=== PATIENT | male | born 1985 ===

== ENCOUNTER 2021-07-07 09:15 | Emergency (ER) | payer BC ==
--- NOTE | 2021-07-07 09:54 | EDM.PDOC ---
ED HPI GENERAL MEDICAL PROBLEM - General Chief Complaint: Chest Pain Stated Complaint: CHEST PAIN Time Seen by Provider: 07/07/21 09:32 Source of Information: Reports: Patient History Limitations: Reports: No Limitations - History of Present Illness INITIAL COMMENTS - FREE TEXT/NARRATIVE: Is a 35-year-old male who presents today for chest pain. Patient been having his pain for the past few months. He states he seen 3 providers and they thought it may be related to anxiety. But states that he has a sharp pain on the left side he also states that he has his feelings where his heart is beating stronger than what it should be. Said he got yesterday with his walker and fell. Says when he sits down it briefly goes away at times. He denies shortness of breath currently when he has his strong heartbeat he feels some shortness of breath denies any cough fever chills or other complaints. chest Pain Score (Numeric/FACES): 5 - Related Data Allergies Allergy/AdvReac Type Severity Reaction Status Date / Time No Known Allergies Allergy Verified 07/07/21 09:36 Home Meds: Home Meds . [No Known Home Meds] 07/07/21 [History] Past Medical History Respiratory History: Reports: Asthma Gastrointestinal History: Reports: GERD - Infectious Disease History Infectious Disease History: Reports: Chicken Pox, Novel Coronavirus ED ROS GENERAL - Review of Systems Review Of Systems: See Below Constitutional: Reports: No Symptoms HEENT: Reports: No Symptoms Respiratory: Reports: No Symptoms Cardiovascular: Reports: Chest Pain, Palpitations Endocrine: Reports: No Symptoms GI/Abdominal: Reports: No Symptoms : Reports: No Symptoms Musculoskeletal: Reports: No Symptoms Skin: Reports: No Symptoms Neurological: Reports: No Symptoms Psychiatric: Reports: No Symptoms Hematologic/Lymphatic: Reports: No Symptoms Immunologic: Reports: No Symptoms ED EXAM, GENERAL - Physical Exam Exam: See Below Exam Limited By: No Limitations General Appearance: Alert, WD/WN, No Apparent Distress Eye Exam: Bilateral Eye: EOMI, PERRL Nose: Normal Inspection Throat/Mouth: Normal Inspection Head: Atraumatic, Normocephalic Neck: Normal Inspection Respiratory/Chest: No Respiratory Distress, Lungs Clear Cardiovascular: Normal Peripheral Pulses, Regular Rate, Rhythm GI/Abdominal: Normal Bowel Sounds, Soft, Non-Tender Extremities: Normal Inspection, Normal Range of Motion Neurological: Alert, Oriented, Normal Cognition, Normal Gait #1 Interpretation EKG Date: 07/07/21 Time: 09:20 Rhythm: NSR Rate (Beats/Min): 74 ST-T: Other (Diffuse ST elevation no signs of STEMI) Course - Vital Signs Last Recorded V/S: Last Vital Signs Temp 97.2 F 07/07/21 09:36 Pulse 63 07/07/21 09:51 Resp 18 07/07/21 09:51 BP 129/66 07/07/21 09:51 Pulse Ox 96 07/07/21 09:51 - Orders/Labs/Meds Labs: Laboratory Tests 07/07/21 07/07/21 Range/Units 10:42 10:42 WBC 3.88 L (4.0-11.0) K/uL RBC 4.77 (4.50-5.90) M/uL Hgb 15.0 (13.0-17.0) g/dL Hct 43.3 (38.0-50.0) % MCV 90.8 (80.0-98.0) fL MCH 31.4 (27.0-32.0) pg MCHC 34.6 (31.0-37.0) g/dL RDW Std Deviation 39.2 (28.0-62.0) fl RDW Coeff of Jessica 12 (11.0-15.0) % Plt Count 215 (150-400) K/uL MPV 8.70 (7.40-12.00) fL Neut % (Auto) 45.4 L (48.0-80.0) % Lymph % (Auto) 37.6 (16.0-40.0) % Chaves % (Auto) 12.1 (0.0-15.0) % Eos % (Auto) 4.4 (0.0-7.0) % Baso % (Auto) 0.5 (0.0-1.5) % Neut # (Auto) 1.8 (1.4-5.7) K/uL Lymph # (Auto) 1.5 (0.6-2.4) K/uL Chaves # (Auto) 0.5 (0.0-0.8) K/uL Eos # (Auto) 0.2 (0.0-0.7) K/uL Baso # (Auto) 0.0 (0.0-0.1) K/uL Nucleated RBC % 0.0 /100WBC Nucleated RBCs # 0 K/uL Sodium 139 (136-148) mmol/L Potassium 4.0 (3.5-5.1) mmol/L Chloride 103 (98-107) mmol/L Carbon Dioxide 29.4 (21.0-32.0) mmol/L BUN 15 (7.0-18.0) mg/dL Creatinine 1.1 (0.8-1.3) mg/dL Est Cr Clr Drug Dosing 115.21 mL/min Estimated GFR (MDRD) > 60.0 ml/min Glucose 102 (74-106) mg/dL Calcium 8.9 (8.5-10.1) mg/dL Total Bilirubin 0.5 (0.2-1.0) mg/dL AST 20 (15-37) IU/L ALT 34 (14-63) IU/L Alkaline Phosphatase 79 (46-116) U/L Creatine Kinase 124 (26-308) U/L Troponin I < 0.050 (0.000-0.056) ng/mL C-Reactive Protein <0.20 (0.00-0.90) mg/dL Total Protein 7.2 (6.4-8.2) g/dL Albumin 3.8 (3.4-5.0) g/dL Globulin 3.4 (2.6-4.0) g/dL Albumin/Globulin Ratio 1.1 (0.9-1.6) - Re-Assessments/Exams Free Text/Narrative Re-Assessment/Exam: 07/07/21 12:22 Patient tropes negative x1 vital signs are stable unclear if this is pericarditis patient instructed to take aspirin Motrin as needed and he is already following up as he had a Holter monitor is waiting for results patient will follow up cardiology. Departure - Departure Time of Disposition: 12:23 Disposition: Home, Self-Care 01 Condition: Good Clinical Impression: Chest pain, Palpitation Instructions: Palpitations, [id number] Referrals: PCP,None [Primary Care Provider] - Forms: ED Department Discharge Additional Instructions: You were seen today for a palpitation like strong feeling in your chest and also some chest pain. We did a cardiac work-up that was within normal limits you already had a Holter monitor of your heart placed you awaiting results we recommend continue to follow-up with them if you have any other concerning signs or symptoms please come back to the ED immediately. You also take aspirin or Motrin for the next 7 days as well to help out the pain. Below we also plan our number for irrigation manager to get to follow-up here. The following information is given to patients seen in the emergency department who are being discharged to home. This information is to outline your options for follow-up care. We provide all patients seen in our emergency department with a follow-up referral. The need for follow-up, as well as the timing and circumstances, are variable depending upon the specifics of your emergency department visit. If you don't have a primary care physician on staff, we will provide you with a referral. We always advise you to contact your personal physician following an emergency department visit to inform them of the circumstance of the visit and for follow-up with them and/or the need for any referrals to a consulting specialist. The emergency department will also refer you to a specialist when appropriate. This referral assures that you have the opportunity for follow-up care with a specialist. All of these measure are taken in an effort to provide you with optimal care, which includes your follow-up. Under all circumstances we always encourage you to contact your private physician who remains a resource for coordinating your care. When calling for follow-up care, please make the office aware that this follow-up is from your recent emergency room visit. If for any reason you are refused follow-up, please contact the [facility] Emergency Department at and asked to speak to the emergency department charge nurse. Please follow up with your primary care physician. If you do not have a primary care physician, see below: [facility] at [facility] [address] [place] [id number] Sepsis Event Note (ED) - Evaluation Sepsis Screening Result: No Definite Risk - Focused Exam Vital Signs: Vital Signs Temp Pulse Resp BP Pulse Ox 07/07/21 09:51 63 18 129/66 96 07/07/21 09:36 97.2 F 69 16 129/66 96 - Assessment/Plan Plan: Patient is a 35-year-old male who presents today for chest pain for the past few weeks. Patient has a heart score of 0. His EKG is sinus rhythm but does have some slight elevation in diffuse leads unclear if this is pericarditis or not.
--- NOTE | 2021-07-07 10:34 | CR ---
Indication: Chest Pain Comparison: None available. Technique: Single AP view chest Findings: There is hyperinflation and moderate interstitial prominence. There is no focal consolidation, effusion, or pneumothorax. The cardiomediastinal silhouette is within normal limits. The bony thorax is grossly intact. Impression: Hyperinflation in moderate interstitial prominence likely representing minimal pulmonary vascular congestion and/or bronchial thickening. No dense consolidation. Dictated by Tung Wilson MD @ 07/07/2021 10:32:44 AM (Electronically Signed)
[2021-07-07 11:45] LABS: BLOOD UREA NITROGEN,BUN 15 mg/dL (7.0-18.0); CARBON DIOXIDE,CO2 29.4 mmol/L (21.0-32.0); CHLORIDE,CL 103 mmol/L (98-107); GLUCOSE RANDOM 102 mg/dL (74-106); SODIUM,NA 139 mmol/L (136-148)
== END 2021-07-07 12:51 | disposition home or self-care (01) ==
LOC: MW.ED 09:15
DX: R07.9 Chest pain, unspecified (principal); R00.2 Palpitations; J45.909 Unspecified asthma, uncomplicated
CPT/HCPCS: 36415; 71045; 71045-26; 80053; 82550; 84484; 85025; 86140; 99285-25